=== PATIENT | female | born 1990 | race Two or more races ===

== ENCOUNTER 2018-07-30 06:55 | Emergency (ER) | payer OTHER ==
[2018-07-30] MEDS ORDERED: IBUPROFEN 600 MG TABLET PO ONE (07:57)
--- NOTE | 2018-07-30 08:04 | ER Document Report ---
ED Extremity Problem, Lower - General Chief Complaint: Ankle Injury Stated Complaint: FALL, RIGHT ANKLE INJURY Time Seen by Provider: 07/30/18 07:36 Mode of Arrival: Wheelchair - *By Bill montemayor the Felipe stickers I remember Information source: Patient Notes: Patient is a 28-year-old female comes emergency room complaining of right ankle pain. Patient states she was on her way to work and was walking on steps and missed one step inverting her right ankle as she fell. She denies any other injuries but states that she is never felt pain in her ankle like this before. Denies any history of ankle trauma in the past. Patient states she is unable to bear weight on the foot because of pain. She denies any other medical problems. She is a teacher and teaches eighth grade. And she does not smoke. Last menstrual period was July 03, 2018 TRAVEL OUTSIDE OF THE [place] IN LAST 30 DAYS: No - HPI Patient complains to provider of: Injury, Pain, Swelling Location: Ankle Occurred: Just prior to arrival Where: Home Onset/Duration: Sudden, Persistent Quality of pain: Achy, Sharp, Throbbing Severity: Moderate Pain Level: 3 Context: Wearing shoes Associated symptoms: Unable to bear weight Exacerbated by: Movement, Walking Relieved by: Elevation - Related Data Allergies/Adverse Reactions: Penicillins Allergy (Verified 07/30/18 07:36) Past Medical History - General Information source: Patient - Social History Smoking Status: Never Smoker Cigarette use (# per day): No Chew tobacco use (# tins/day): No Smoking Education Provided: No Frequency of alcohol use: None Drug Abuse: None Family History: Reviewed & Not Pertinent Patient has suicidal ideation: No Patient has homicidal ideation: No Renal/ Medical History: Denies: Hx Peritoneal Dialysis Review of Systems - Review of Systems Constitutional: No symptoms reported EENT: No symptoms reported Cardiovascular: No symptoms reported Respiratory: No symptoms reported Gastrointestinal: No symptoms reported Genitourinary: No symptoms reported Female Genitourinary: No symptoms reported Musculoskeletal: See HPI, Ankle swelling Skin: No symptoms reported Hematologic/Lymphatic: No symptoms reported Neurological/Psychological: No symptoms reported -: Yes All other systems reviewed and negative Physical Exam - Vital signs Vitals: Temp Pulse Resp BP Pulse Ox 97.8 F 78 16 108/61 98 07/30/18 07:06 07/30/18 07:06 07/30/18 07:06 07/30/18 07:06 07/30/18 07:06 Interpretation: Normal - Notes Notes: PHYSICAL EXAMINATION: GENERAL: Patient is a well-nourished well-developed 28-year-old female is in no apparent distress on examination today. Although patient does appear to be in moderate discomfort in the slight amount of pain. HEAD: Atraumatic, normocephalic. EYES: Pupils equal round and reactive to light, extraocular movements intact, conjunctiva are normal. NECK: Normal range of motion, supple without lymphadenopathy LUNGS: Breath sounds clear to auscultation bilaterally and equal. No wheezes rales or rhonchi. HEART: Regular rate and rhythm without murmurs Female : deferred Musculoskeletal: no pitting or edema. No cyanosis. Examination of area of concern his right ankle. Examination shows that patient has mild swelling to the right ankle lateral malleolus area. Moderate amount of tenderness anterior portion of the lateral malleolus. Decreased flexion extension secondary to discomfort and pain. Patient displays good cap refill in all the toes of the right foot. She has a good dorsalis pedal pulse and good posterior tibial pulses. Patient is also decreased rotation of the ankle secondary to pain and discomfort. No deformities really noted. Swelling is circumferential with the right lateral being the greatest and minimal on the medial malleolar area. NEUROLOGICAL:. Normal speech. Normal sensory, motor exams PSYCH: Normal mood, normal affect. SKIN: Warm, Dry, normal turgor, no rashes or lesions noted. Course - Re-evaluation Re-evalutation: 07/30/18 09:19 Patient was found to have a normal x-ray. At this time we will go ahead and put her in a stirrup splint nonweightbearing for 3 days after 3 days she can attempt to bear weight if it still painful she will need follow-up with your primary care doctor or see orthopedist. I have informed her that she needs to ice it down 3-4 times a day. Ibuprofen alternate with Tylenol for aches and pains. Return to ER she has any concerns or problems. - Vital Signs Vital signs: Temp Pulse Resp BP Pulse Ox 97.8 F 78 16 108/61 98 07/30/18 07:06 07/30/18 07:06 07/30/18 07:06 07/30/18 07:06 07/30/18 07:06 Procedures - Immobilization Right Ankle Immobilizer type: Ankle stirrup Performed by: PCT Post-Proc Neuro Vasc Exam: Normal, Unchanged from pre-exam Alignment checked and good: Yes Discharge - Discharge Clinical Impression: Moderate right ankle sprain Qualifiers: Encounter type: initial encounter Qualified Code(s): S93.401A - Sprain of unspecified ligament of right ankle, initial encounter Condition: Stable Disposition: HOME, SELF-CARE Instructions: Ankle Stirrup Splint ([facility]), Use of Crutches ([facility]), Ice & Elevation ([facility]), Ice Packs ([facility]), Oral Narcotic Medication ([facility]), Sprained Ankle ([facility]) Additional Instructions: As we discussed the C1 those times it most likely due to strain the ligament we discussed about the crosses over that bone in the foot. The best way to treat this is nonweightbearing for 3 days after 3 days you can attempt to bear weight if it is still very painful you need to see your primary doctor or contact orthopedist. I will give you our orthopedic group is extrusion die corrector today. You may contact their office to see if they can accommodate you. Most of the time if you go and protect her ankle for the 3 days ice it down 3 or 4 times a day take the medication including ibuprofen which actually helps with inflammation after 3 days to be just mildly discomfort you can then either Dada wrap it for a few days or you can go and buy 1 of those Dada socks that I call them at [facility] or a pharmacy that has the toes cut out in the heel cut out this could be some extra support. I would highly suggest not wearing any type of a high heel for the next week to 10 days. Again if pain continues on you will need to follow- up with an orthopedic for a recheck. You may have to start with your primary care. Should you have any concerns or problems return to ER for recheck. Prescriptions: Hydrocodone/Acetaminophen [Tiger 5-325 mg Tablet] 1 tab PO ASDIR PRN #6 tablet PRN Reason: Ibuprofen [Ibu] 600 mg PO TID PRN #30 tablet PRN Reason: Forms: Return to Work, Special Work Note Referrals: NGA JEFFERSON MD [ACTIVE STAFF] - Follow up as needed
--- NOTE | 2018-07-30 08:39 | RADIOLOGY REPORT (SQ) ---
EXAM DESCRIPTION: ANKLE RIGHT COMPLETE COMPLETED DATE/TIME: 07/30/2018 8:31 am REASON FOR STUDY: Right ankle pain twisted ankle, pain laterally COMPARISON: None. NUMBER OF VIEWS: Three views. TECHNIQUE: AP, lateral, and oblique radiographic images acquired of the right ankle. LIMITATIONS: None. FINDINGS: MINERALIZATION: Normal. BONES: No acute fracture or dislocation. No worrisome bone lesions. JOINTS: No effusions. SOFT TISSUES: No soft tissue swelling. No foreign body. OTHER: No other significant finding. IMPRESSION: NEGATIVE STUDY OF THE RIGHT ANKLE. NO RADIOGRAPHIC EVIDENCE OF ACUTE INJURY. TECHNICAL DOCUMENTATION: JOB ID: [id number] [employer]EL Qualified- All Rights Reserved Reading location - IP/workstation name: [email or web address]
[2018-07-30 09:21] VITALS: BP 104/68
== END 2018-07-30 09:38 | disposition home or self-care (01) ==
LOC: ER 06:55
DX: S93.401A Sprain of unspecified ligament of right ankle, initial encounter (principal); W10.9XXA Fall (on) (from) unspecified stairs and steps, initial encounter; Y93.89 Activity, other specified; Y92.009 Unspecified place in unspecified non-institutional (private) residence as the place of occurrence of the external cause; Z88.0 Allergy status to penicillin
CPT/HCPCS: 99283; 73610; L4350